=== PATIENT | female | born 1950 | race Caucasian/White ===

== ENCOUNTER 2024-11-13 13:47 | Emergency (ER) | payer OTHER ==
--- NOTE | 2024-11-13 14:54 | ER ---
Nurse's Notes [facility] Name: Danelle Ayala Age: 73 yrs Sex: Female : 1950 Arrival Date: 11/13/2024 Time: 13:47 Bed 6 Private MD: Diagnosis: Other conjunctivitis;Impacted cerumen, right ear Presentation: 11/13 14:23 Chief complaint: Patient states: this morning at 0930 put ear wax removal drops into cm10 right eye by accident. Pt states that her eye is stinging after flushing it with cold water and is also having some blurred vision. Coronavirus screen: Client denies travel out of the [place] in the last 14 days. Ebola Screen: Patient denies travel to an Ebola-affected area in the 21 days before illness onset. Initial Sepsis Screen: Does the patient meet any 2 criteria? No. Patient's initial sepsis screen is negative. Does the patient have a suspected source of infection? No. Patient's initial sepsis screen is negative. Risk Assessment: Do you want to hurt yourself or someone else? Patient reports no desire to harm self or others. Onset of symptoms was November 13, 2024. 14:23 Method Of Arrival: Ambulatory cm10 14:23 Acuity: JARROD 4 cm10 Triage Assessment: 14:27 General: Appears in no apparent distress. comfortable, Behavior is calm, cooperative, cm10 appropriate for age. Neuro: No deficits noted. Level of Consciousness is awake, alert, obeys commands, Oriented to person, place, time, situation, Appropriate for age. Respiratory: No deficits noted. Airway is patent Respiratory effort is even, unlabored, Respiratory pattern is regular, symmetrical. Historical: - Allergies: 14:25 No Known Allergies; cm10 - Home Meds: 14:25 amlodipine oral [Active]; levothyroxine oral [Active]; gabapentin oral [Active]; cm10 Furosemide Oral [Active]; - PMHx: 14:25 Hypothyroidism; Hypertensive disorder; cm10 - Immunization history:: Adult Immunizations up to date. - Infectious Disease History:: Denies. - Social history:: Smoking status: Patient denies any tobacco usage or history of. Screenin:30 [facility] ED Fall Risk Assessment (Adult) History of falling in the last 3 months, aa5 including since admission No falls in past 3 months (0 pts) Confusion or Disorientation No (0 pts) Intoxicated or Sedated No (0 pts) Impaired Gait No (0 pts) Mobility Assist Device Used No (0 pt) Altered Elimination No (0 pt) Score/Fall Risk Level 0 - 2 = Low Risk Oriented to surroundings, Maintained a safe environment, Educated pt \T\ family on fall prevention, incl call for assistance when getting out of bed, Assessed \T\ reinforced patient's understanding of fall precautions. Abuse screen: Denies threats or abuse. Nutritional screening: No deficits noted. Tuberculosis screening: No symptoms or risk factors identified. Assessment: 14:30 General: Appears comfortable, Behavior is calm, cooperative. Pain: Complains of pain in aa5 right eye Quality of pain is described as burning. Neuro: Level of Consciousness is awake, alert, obeys commands, Oriented to person, place, time, situation. Cardiovascular: Patient's skin is warm and dry. Respiratory: Airway is patent Respiratory effort is even, unlabored, Respiratory pattern is regular, symmetrical. GI: No signs and/or symptoms were reported involving the gastrointestinal system. : No signs and/or symptoms were reported regarding the genitourinary system. EENT: Reports pain in right eye. Derm: Skin is pink, warm \T\ dry. Musculoskeletal: Range of motion: intact in all extremities. 15:00 Reassessment: Patient is alert, oriented x 3, equal unlabored respirations, skin aa5 warm/dry/pink. Vital Signs: 14:23 BP 134 / 75; Pulse 71; Resp 16; Temp 97.7(TE); Pulse Ox 97% on R/A; Weight 77.11 kg; cm10 Height 5 ft. 4 in. ; Pain 3/10; 14:23 Body Mass Index 29.18 (77.11 kg, 162.56 cm) cm10 14:23 Pain Scale: Adult cm10 ED Course: 14:12 Patient arrived in ED. al6 14:17 Aye Jean FNP is [facility]. jh7 14:17 Daniele Diaz MD is Attending Physician. jh7 14:24 Triage completed. cm10 14:27 Arm band placed on right wrist. Patient placed in an exam room, on a stretcher. cm10 14:27 Patient has correct armband on for positive identification. aa5 14:35 Shanda Floyd, RN is Primary Nurse. aa5 15:00 No provider procedures requiring assistance completed. Patient did not have IV access aa5 during this emergency room visit. Administered Medications: No medications were administered Medication: 15:00 VIS not applicable for this client. aa5 Outcome: 14:54 Discharge ordered by . [email or web address] 15:00 Discharged to home ambulatory, with family, aa5 15:00 Condition: stable 15:00 Discharge instructions given to patient, Instructed on discharge instructions, follow up and referral plans. medication usage, Demonstrated understanding of instructions, follow-up care, medications, Prescriptions given X 1, 15:03 Patient left the ED. aa5 Signatures: Shanda Floyd, RN RN aa5 Aye Jean, CONTRACTING EXECUTIVE CONTRACTING EXECUTIVE Silvia Han RN RN cm10 Shreya Resendez6
--- NOTE | 2024-11-13 14:54 | EDPHYS ---
Physician Documentation [facility] Name: Danelle Ayala Age: 73 yrs Sex: Female : 1950 Arrival Date: 11/13/2024 Time: 13:47 Bed 6 Private MD: ED Physician Daniele Diaz HPI: 11/13 14:23 This 73 yrs old Female presents to ER via Ambulatory with complaints of Eye Injury, Ear jh7 Pain. 14:23 73-year-old female with a past medical history of hypertension presents to the ER for jh7 right eye irritation and right ear pain. The patient reports that she has felt a fullness in her right ear and decreased hearing for over a week. She reports that she has been using Debrox and accidentally got Debrox in her right eye today. She reports that she experienced burning pain and that she immediately flushed her eye. Reports that the pain has improved but her right eye still feels irritated and inflamed.. Historical: - Allergies: 14:25 No Known Allergies; cm10 - Home Meds: 14:25 amlodipine oral [Active]; levothyroxine oral [Active]; gabapentin oral [Active]; cm10 Furosemide Oral [Active]; - PMHx: 14:25 Hypothyroidism; Hypertensive disorder; cm10 - Immunization history:: Adult Immunizations up to date. - Infectious Disease History:: Denies. - Social history:: Smoking status: Patient denies any tobacco usage or history of. ROS: 14:23 Constitutional: Per HPI jh7 Exam: 14:23 Constitutional: This is a well developed, well nourished patient who is awake, alert, jh7 and in no acute distress. Head/Face: Normocephalic, atraumatic. Neck: Trachea midline, no thyromegaly or masses palpated, and no cervical lymphadenopathy. Supple, full range of motion without nuchal rigidity, or vertebral point tenderness. No Meningismus. Cardiovascular: Regular rate and rhythm with a normal S1 and S2. No gallops, murmurs, or rubs. Normal PMI, no JVD. No pulse deficits. Respiratory: Lungs have equal breath sounds bilaterally, clear to auscultation and percussion. No rales, rhonchi or wheezes noted. No increased work of breathing, no retractions or nasal flaring. Abdomen/GI: Soft, non-tender, with normal bowel sounds. No distension or tympany. No guarding or rebound. No evidence of tenderness throughout. Back: No spinal tenderness. No costovertebral tenderness. Full range of motion. Skin: Warm, dry with normal turgor. Normal color with no rashes, no lesions, and no evidence of cellulitis. Neuro: Awake and alert, GCS 15, oriented to person, place, time, and situation. Normal gait. 14:23 Eyes: Periorbital structures: appear normal, Pupils: equal, round, and reactive to light and accomodation, Extraocular movements: no acute changes, Conjunctiva: injected, in the right eye, 14:23 ENT: Ear canal(s): cerumen impaction, that is moderate, occluding the right ear canal, Vital Signs: 14:23 BP 134 / 75; Pulse 71; Resp 16; Temp 97.7(TE); Pulse Ox 97% on R/A; Weight 77.11 kg; cm10 Height 5 ft. 4 in. ; Pain 3/10; 14:23 Body Mass Index 29.18 (77.11 kg, 162.56 cm) cm10 14:23 Pain Scale: Adult cm10 MDM: 14:17 Medical Screening Exam initiated [facility] 14:25 Differential diagnosis: Acute iritis of right eye. Chemical conjunctivitis in right jh7 eye. Infectious conjunctivitis in right eye. Data reviewed: vital signs, nurses notes. Care significantly affected by the following chronic conditions: Hypertension. Counseling: I had a detailed discussion with the patient and/or guardian regarding the historical points, exam findings, and any diagnostic results supporting the discharge/admit diagnosis, to return to the emergency department if symptoms worsen or persist or if there are any questions or concerns that arise at home. ED course: Informed the patient that since the Debrox bottle had been in her ear multiple times we will prescribe the patient erythromycin ointment for prophylaxis. She denied any visual changes. Also advised her to follow-up with ENT for cerumen impaction. All questions and concerns were addressed.. Administered Medications: No medications were administered Disposition Summary: 11/13/24 14:54 Discharge Ordered Notes: Location: Home [facility] Problem: new [facility] Symptoms: have improved [facility] Condition: Stable [facility] Diagnosis - Other conjunctivitis 7 - Impacted cerumen, right ear jh7 Followup: [facility] - With: Private Physician - When: 2 - 3 days - Reason: Recheck today's complaints Discharge Instructions: - Discharge Summary Sheet [facility] - Earwax Buildup, Adult [facility] - Ear Drops, Adult [facility] - Bacterial Conjunctivitis, Adult [facility] Forms: - Medication Reconciliation Form [facility] - Antibiotic Education [facility] - Patient Portal Instructions [facility] - Leadership Thank You Letter [facility] Prescriptions: - Erythromycin 5 mg/gram (0.5 %) Ophthalmic ointment - apply 1 centimeter OPHTHALMIC route 2-3 times daily for 7 days; 1 centimeter; [facility] Refills: 0, Product Selection Permitted Signatures: Aye Jean, EDU CMA OR LPN [facility] Silvia Talley, RN RN cm10
[2024-11-13 15:14] VITALS: BP 134/75; TEMP 97.7; O2SAT 97
== END 2024-11-13 15:03 | disposition home or self-care (01) ==
LOC: ER 13:47
DX: H10.89 Other conjunctivitis (principal); H61.21 Impacted cerumen, right ear
CPT/HCPCS: 99283